=== PATIENT | male | born 1995 | race Two or more races ===

== ENCOUNTER 2019-04-28 16:03 | Emergency (ER) | payer MEDICAID ==
[~2019-04-28] VITALS: Ht 175.3 cm; Wt 118.8 kg
[2019-04-28] MEDS ORDERED: ACETAMINOPHEN ES 500 MG TABLET ONE (16:23)
[2019-04-28] MEDS ORDERED: ACETAMINOPHEN ES 500 MG TABLET PO ONE (16:30)
[2019-04-28 16:34] LABS: BASOPHILS % (AUTO) 0.4 % (0.0-2.0); EOSINOPHILS % (AUTO) 0.3 % (0.0-7.0); HEMATOCRIT 45.8 % (36.7-47.1); HEMOGLOBIN 15.3 g/dL (12.5-16.3); LYMPHOCYTES # (AUTO) 2.9 K/uL (20.0-40.0); LYMPHOCYTES % (AUTO) 26.2 % (20.5-51.5); MEAN CORPUSCULAR HEMOGLOBIN 28.2 uug (23.8-33.4); MEAN CORPUSCULAR HGB CONC 33 g/dL (32.5-36.3); MEAN CORPUSCULAR VOLUME 84.3 fL (73.0-96.2); MONOCYTES # (AUTO) 0.6 K/uL (2.0-10.0); MONOCYTES % (AUTO) 5.4 % (0.0-11.0); NEUTROPHILS # (AUTO) 7.4 K/uL (1.8-8.9); NEUTROPHILS % (AUTO) 67.7 % (38.5-71.5); PLATELET COUNT (AUTO) 308 K/uL (152-348); RED BLOOD CELL COUNT(AUTO) 5.44 MIL/uL (4.06-5.63); WHITE BLOOD COUNT (AUTO) 10.9 K/uL (3.6-10.2)
[2019-04-28 16:40] LABS: CREATININE 1.1 mg/dL (0.6-1.3); POTASSIUM 3.8 mmol/L (3.5-5.1)
--- NOTE | 2019-04-28 16:57 | NUR ---
Patient vomitted in CT Scan per mapping technician [place]. Patient is [id number]. Patient says that he feels better after vomiting, pending results & disposition.
[2019-04-28] MEDS ORDERED: LEVETIRACETAM IV 500 MG in IV DEXTROSE 5% 100 ML IV ONE (17:15)
--- NOTE | 2019-04-28 18:40 | NUR ---
Patient c/o headaches still, Dr Britton notified.
[2019-04-28] MEDS ORDERED: KETOROLAC TROMETHAMINE 30 MG INJ IVP ONE (18:45)
[2019-04-28] MEDS ORDERED: KETOROLAC TROMETHAMINE 30 MG INJ ONE (18:49)
--- NOTE | 2019-04-28 19:09 | NUR ---
Patient discharged to home in stable conditon. Written and verbal after care instructions given. Patient verbalizes understanding of instructions.pt walks in steady gait. pt accompanied by family members. pt says feels better.
[2019-04-28 19:11] VITALS: BP 135/66
== END 2019-04-28 19:14 | disposition home or self-care (01) ==
LOC: ER 16:06
DX: R56.9 Unspecified convulsions (principal)
CPT/HCPCS: 36415; 70450; 80048; 85025; 96365; 96375; 99284; J1885; J1953; J7060; A4663; A9150

== ENCOUNTER 2019-05-01 15:25 | Emergency (ER) | payer SELFPAY ==
[~2019-05-01] VITALS: Ht 180.3 cm; Wt 118.8 kg
--- NOTE | 2019-05-01 16:58 | NUR ---
Patient discharged to home in stable conditon. Written and verbal after care instructions given. Patient verbalizes understanding of instructions.
[2019-05-01 17:03] VITALS: BP 110/55
== END 2019-05-01 17:00 | disposition home or self-care (01) ==
LOC: ER 15:27
DX: S62.617A Displaced fracture of proximal phalanx of left little finger, initial encounter for closed fracture (principal); B34.9 Viral infection, unspecified; X58.XXXA Exposure to other specified factors, initial encounter; Y93.89 Activity, other specified; Y92.89 Other specified places as the place of occurrence of the external cause; Y99.8 Other external cause status
CPT/HCPCS: 71045; 73130; A4663